=== PATIENT | female | born 1960 | race Caucasian/White ===

== ENCOUNTER 2023-12-01 17:46 | Emergency (ER) | payer OTHER, MEDICAID, SELFPAY ==
[2023-12-01] VITALS (9 sets, daily range): BP systolic 113–176; BP diastolic 77–110; PULSE 60–118; RESP 16–29; TEMP 37.2; O2SAT 91–95; BMI 37.4
--- NOTE | 2023-12-01 18:14 | DI.RAD.S_ITS ---
PROCEDURE: XR CHEST 1V INDICATIONS: Shortness of breath TECHNIQUE: One view of the chest was acquired. COMPARISON: None. FINDINGS: Surgical changes and devices: None. Lungs and pleura: Low lung volumes. Diffuse interstitial thickening. Indistinct central vessels. Possible trace bilateral pleural effusions. Mediastinum: Mediastinal contours appear normal. Heart size is normal. Bones and chest wall: No suspicious bony lesions. Overlying soft tissues appear unremarkable. IMPRESSION: Diffuse interstitial thickening may indicate viral pneumonitis or pulmonary edema. Findings are extension weighted by low lung volumes. Dictated by: Valeria Ann M.D. on 12/01/2023 at 19:23 Approved by: Valeria Ann M.D. on 12/01/2023 at 19:24
[2023-12-01 18:33] LABS: Add Manual Diff / Slide Review NO; Basophils Absolute Auto 100 /uL (0-100); Basophils Percent Auto 1.4 % (0-2); Eosinophils Absolute Auto 300 /uL (0-450); Eosinophils Percent Auto 3.5 % (2-4); Hematocrit 47.8 % (36-46); Hemoglobin 15.9 g/dL (12.0-16.0); Lymphocytes Absolute Auto 2400 /uL (1100-4500); Lymphocytes Percent Auto 24.5 % (25-40); Mean Corpuscular HGB Conc 33.3 % (30-36); Mean Corpuscular Hemoglobin 29.5 PG (26-34); Mean Corpuscular Volume 88.5 fL (80-100); Monocytes Absolute Auto 600 /uL (0-900); Monocytes Percent Auto 5.9 % (3-14); Neutrophils Absolute Auto 6300 /uL (1500-7000); Neutrophils Percent Auto 64.7 % (50-75); Platelet Count 226 X10^3/uL (150-400); Prothrombin Time 11.2 SECONDS (9.4-12.5); Red Blood Cell Count 5.41 X10^6/uL (4.0-5.2); White Blood Cell Count 9.8 X10^3/uL (4.5-11.0)
[2023-12-01 18:36] LABS: Lactate (Lactic Acid) 1.2 mmol/L (0.7-2.1)
[2023-12-01 18:37] LABS: Alanine Aminotransferase 32 IU/L (<35); Albumin 3.7 g/dL (3.5-5.0); Albumin Globulin Ratio 1.1 (1.0-2.8); Alkaline Phosphatase 98 U/L (38-126); Aspartate Aminotransferase 25 IU/L (14-36); BUN Creatinine Ratio 17.6 (6-22); Bilirubin Total 0.9 mg/dL (0.2-1.3); Blood Urea Nitrogen 13 mg/dL (7-17); Calcium 9.1 mg/dL (8.4-10.2); Carbon Dioxide 32 mmol/L (22-32); Chloride 101 mmol/L (98-107); Estimated Glomerular Filt Rate > 60 mL/min (>60); Globulin 3.3 g/dL (1.7-4.1); Glucose 171 mg/dL (80-110); HEMOLYSIS < 15 (0-50); Potassium 4.2 mmol/L (3.4-5.1); Sodium 135 mmol/L (137-145)
--- NOTE | 2023-12-01 18:45 | ED_ITS ---
HPI - SOB/Dyspnea General Chief Complaint: Shortness of Breath/Dyspnea Stated Complaint: Sob, Abn EKG, Leg Swelling, unable to lie flat Time Seen by Provider: 12/01/23 18:40 History of Present Illness HPI Narrative: Gradually increasing shortness of breath and lower extremity edema over the past 3 or 4 days. No fever, she does have significant cough. She reports very significant weight gain. No known history of coronary disease or congestive heart failure or diabetes or pulmonary disease. She does smoke cigarettes and she does have hypertension. She has a little bit of chest heaviness from time to time and she reports abdominal pain mainly in the left side but a little bit in the right upper as well. She also is quite constipated recently. She went to urgent care and they told her to come over here to the emergency department. Related Data Previous Rx's Medication Instructions Recorded doxycycline hyclate 100 mg capsule 100 mg PO Q12H #20 caps 03/10/17 hydrocodone 5 mg-acetaminophen 325 0 tab PO Q6HP PRN #15 tabs 03/10/17 mg tablet furosemide 40 mg tablet 40 mg PO BID #14 tabs 12/01/23 Allergies Allergy/AdvReac Type Severity Reaction Status Date / Time No Known Allergies Allergy Uncoded 12/14/17 11:52 Patient History Social History Smoking Status: Current every day smoker Smoking Status: Current every day smoker Substance Use Type: marijuana Exam Narrative Exam Narrative: GENERAL: Alert, cooperative and in no distress. HEAD: Atraumatic. Normocephalic. EYES: Sclera are clear without icterus. Extraocular movements are full. ENT: No rhinorrhea. NECK: Supple. Full range of motion. CARDIOVASCULAR: Normal rate and rhythm without murmur gallop or rub, significant peripheral edema symmetric bilaterally RESPIRATORY: Clear to auscultation. Breath sounds equal bilaterally. No wheezes, rales, or rhonchi. GASTROINTESTINAL: Abdomen soft, non-tender, nondistended. EXTREMITIES: No edema, full range of motion. No obvious trauma. BACK: Normal inspection NEURO: Nonfocal examination, normal speech, normal gait. SKIN: No rash or erythema of visible areas PSYCH: Normally oriented. Normal range of affect. Appropriate behavior Initial Vital Signs Initial Vital Signs: Vital Signs Pulse Rate 60 12/01/23 18:03 Blood Pressure 163/87 H 12/01/23 18:03 Pulse Oximetry 93 12/01/23 18:03 Course Orders Ordered: ED Orders 12/01/23 18:14 XR chest 1V Stat EKG-12 Lead Stat Measure peak expiratory flow ONCE RT Consult Eval and Treat NOW 12/01/23 18:15 Complete Blood Count AUTO DIFF Stat Comprehensive Metabolic Panel Stat Lactate (Lactic Acid) Stat NT-proBNP (BNP-Adult 18+) Stat Prothrombin Time INR Stat Troponin I Stat 12/01/23 18:48 CBC Auto Diff [Complete Blood Count AUTO DIFF] Stat CMP [Comprehensive Metabolic Panel] Stat D Dimer Stat Magnesium Stat Prothrombin Time INR Stat TSH [Thyroid Stimulating Hormone] Stat 12/01/23 18:49 EKG-12 Lead Stat Furosemide (Furosemide 40 Mg Tablet) 40 mg PO NOW ONE Stop: 12/01/23 21:05 Discontinued Medications Aspirin (Aspirin Ec 325 Mg Tablet) 325 mg PO NOW ONE Stop: 12/01/23 18:48 Last Admin: 12/01/23 19:39 Dose: 325 mg Documented By: YANELY Vital Signs Vital signs: Vital Signs - 8 hr 12/01/23 18:03 12/01/23 18:03 12/01/23 18:10 Temperature 98.9 F Pulse Rate 60 116 H Respiratory Rate 24 Blood Pressure 163/87 H 163/87 H Pulse Oximetry 93 94 Oxygen Delivery Method Room Air 12/01/23 18:24 12/01/23 18:30 12/01/23 18:36 Temperature Pulse Rate 113 H 106 H Respiratory Rate 18 22 24 Blood Pressure 163/87 H Pulse Oximetry 95 91 91 Oxygen Delivery Method Room Air 12/01/23 18:36 12/01/23 19:00 12/01/23 19:00 Temperature Pulse Rate 102 H Respiratory Rate 25 H Blood Pressure 157/110 H 176/103 H Pulse Oximetry 93 Oxygen Delivery Method 12/01/23 19:30 12/01/23 19:31 12/01/23 19:31 Temperature Pulse Rate 112 H 118 H Respiratory Rate 24 29 H Blood Pressure 169/77 H Pulse Oximetry 91 93 Oxygen Delivery Method MDM - SOB/Dyspnea Lab Data 12/01/23 18:15 12/01/23 18:15 Labs: Lab Results 12/01/23 Range/Units 18:15 WBC 9.8 (4.5-11.0) X10^3/uL RBC 5.41 H (4.0-5.2) X10^6/uL Hgb 15.9 (12.0-16.0) g/dL Hct 47.8 H (36-46) % MCV 88.5 (80-100) fL MCH 29.5 (26-34) PG MCHC 33.3 (30-36) % RDW 14.0 (11.6-14.8) % Plt Count 226 (150-400) X10^3/uL Neut % (Auto) 64.7 (50-75) % Lymph % (Auto) 24.5 L (25-40) % [place] % (Auto) 5.9 (3-14) % Eos % (Auto) 3.5 (2-4) % Baso % (Auto) 1.4 (0-2) % Neut # (Auto) 6300 (9509-1333) /uL Lymph # (Auto) 2400 (9681-9957) /uL [place] # (Auto) 600 (0-900) /uL Eos # (Auto) 300 (0-450) /uL Baso # (Auto) 100 (0-100) /uL PT 11.2 (9.4-12.5) SECONDS INR 1.0 (0.9-1.3) Sodium 135 L (137-145) mmol/L Potassium 4.2 (3.4-5.1) mmol/L Chloride 101 (98-107) mmol/L Carbon Dioxide 32 (22-32) mmol/L BUN 13 (7-17) mg/dL Creatinine 0.74 (0.52-1.04) mg/dL Estimated GFR > 60 (>60) mL/min BUN/Creatinine Ratio 17.6 (6-22) Glucose 171 H (80-110) mg/dL Lactate 1.2 (0.7-2.1) mmol/L Calcium 9.1 (8.4-10.2) mg/dL Total Bilirubin 0.9 (0.2-1.3) mg/dL AST 25 (14-36) IU/L ALT 32 (<35) IU/L Alkaline Phosphatase 98 (38-126) U/L Troponin I < 0.012 (0.01-0.034) ng/mL NT-Pro-B Natriuret Pep 1320 H (<125) pg/mL Total Protein 7.0 (6.3-8.2) g/dL Albumin 3.7 (3.5-5.0) g/dL Globulin 3.3 (1.7-4.1) g/dL Albumin/Globulin Ratio 1.1 (1.0-2.8) ECG Data Interpretation: ECG obtained at 6:08 p.m. shows sinus tachycardia at 111 beats per minute. Frequent PVCs. No acute ST or T-wave change. MDM Narrative Medical decision making narrative: Patient would like to go home. I told her that she has new congestive heart failure and fluid overload and requires diuretics. I recommend strongly that she stay in the hospital but she declines this at this time saying that she has too many arrangements to take care of at home to consider inpatient care. I told her that she needs to take the diuretic twice daily and follow-up within the next few days and return if she has any worsening symptoms which she agrees to do. Discharge Plan Departure Patient Disposition: Home Clinical Impression: Congestive heart failure Instructions: DI for Heart Failure Activity Restrictions/Additional Instructions: I think the majority of your symptoms are from excessive fluid in your system. This is most likely related to congestive heart failure. I recommend furosemide 40 mg twice daily for the next week. You need to follow-up within the next 3 or 4 days at the clinic for re-evaluation to make sure that your body is tolerating this treatment okay. Prescriptions: New furosemide 40 mg tablet 40 mg PO BID Qty: 14 0RF No Action doxycycline hyclate 100 MG capsule 100 mg PO Q12H Qty: 20 0RF hydrocodone-acetaminophen 5 MG/325 MG tablet 0 tab PO Q6HP PRNQty: 15 0RF Referrals: Miscellaneous,Doctor, [Primary Care Provider] - Stand Alone Forms: Patient Portal/API
[2023-12-01 18:50] LABS: NT-proBNP (BNP-Adult 18+) 1320 pg/mL (<125); Troponin I < 0.012 ng/mL (0.01-0.034)
[2023-12-01] MEDS: ASPIRIN EC 325 MG TABLET PO (19:39)
[2023-12-01] MEDS: FUROSEMIDE 40 MG TABLET PO (21:09)
== END 2023-12-01 21:21 | disposition home or self-care (01) ==
PROVIDERS: Emergency Provider Family Medicine Addiction Medicine
DX: I50.9 Heart failure, unspecified (principal); R06.02 Shortness of breath; R60.9 Edema, unspecified
CPT/HCPCS: 36415; 71045; 80053; 83605; 83880; 84484; 85025; 85610; 93005; 99284

== ENCOUNTER 2023-12-09 22:08 | Observation (INO) | payer OTHER, MEDICAID, SELFPAY ==
[2023-12-09] VITALS (12 sets, daily range): BP systolic 86–108; BP diastolic 52–59; PULSE 58–87; RESP 18–31; TEMP 36.5; O2SAT 89–95; BMI 33.9
--- NOTE | 2023-12-09 22:39 | ED_ITS ---
HPI - General Adult General Chief complaint: Shortness of Breath/Dyspnea Stated complaint: rxn to meds/N/V/close to syncope Time Seen by Provider: 12/09/23 22:26 Source: patient Mode of arrival: Ambulatory History of Present Illness HPI narrative: 62-year-old female presents by private vehicle for nausea and possible medication side effect. Patient was seen on 11/30 for shortness of breath and lower extremity edema. She was diagnosed with congestive heart failure and discharged on Lasix, which she states she finished today. Patient states that she was seen in the walk-in clinic earlier and with several different medications were prescribed. This afternoon she picked the medications up from [facility] and took her 1st doses. She then began to feel symptomatic and came to the ER. Patient noted to be hypotensive with slightly low oxygen on arrival. Related Data Previous Rx's Medication Instructions Recorded doxycycline hyclate 100 mg capsule 100 mg PO Q12H #20 caps 03/10/17 hydrocodone 5 mg-acetaminophen 325 0 tab PO Q6HP PRN #15 tabs 03/10/17 mg tablet furosemide 40 mg tablet 40 mg PO BID #14 tabs 12/01/23 Allergies Allergy/AdvReac Type Severity Reaction Status Date / Time No Known Allergies Allergy Uncoded 12/14/17 11:52 Review of Systems Review of Systems Narrative: See HPI Patient History Social History Smoking Status: Current every day smoker Smoking Status: Current every day smoker Substance Use Type: marijuana Exam Initial Vital Signs Initial Vital Signs: Vital Signs Temperature 97.7 F 12/09/23 22:12 Pulse Rate 58 L 12/09/23 22:12 Respiratory Rate 20 12/09/23 22:12 Blood Pressure 95/54 L 12/09/23 22:12 Pulse Oximetry 95 12/09/23 22:12 Oxygen Delivery Method Room Air 12/09/23 22:12 Course Orders Ordered: ED Orders 12/09/23 22:41 Chest [XR chest 1V] Stat EKG-12 Lead Stat 12/09/23 23:06 BNP [NT-proBNP (BNP-Adult 18+)] Stat CBC Auto Diff [Complete Blood Count AUTO DIFF] Stat CMP [Comprehensive Metabolic Panel] Stat Lactate (Lactic Acid) Stat PT [Prothrombin Time INR] Stat Troponin & CK Cardiac Panel Stat 12/10/23 00:45 BMP [Basic Metabolic Panel] Stat 12/10/23 01:50 UA Complete [Urinalysis and Microscopic] Stat Urine Drug Screen, Rapid Stat 12/10/23 04:50 BMP [Basic Metabolic Panel] Stat 12/10/23 05:58 BMP [Basic Metabolic Panel] Stat Discontinued Medications Albuterol/Ipratropium (Albuterol/Ipratropium 3 Ml Ampul) 6 ml INH NOW ONE Stop: 12/10/23 01:19 Last Admin: 12/10/23 01:37 Dose: 6 ml Documented By: TOMEKA Sodium Chloride (Normal Saline 0.9%) 1,000 mls @ 1,000 mls/hr IV BOLUS ONE Stop: 12/09/23 23:38 Last Infusion: 12/10/23 00:05 Dose: Infused Documented By: Admin: 12/09/23 23:01 Dose: 1,000 mls/hr Documented By: JERRICA Sodium Chloride (Normal Saline 0.9%) 1,000 mls @ 1,000 mls/hr IV BOLUS ONE Stop: 12/10/23 03:43 Last Infusion: 12/10/23 03:55 Dose: Infused Documented By: Admin: 12/10/23 02:55 Dose: 1,000 mls/hr Documented By: JERRICA Potassium Chloride (Potassium Chloride 20 Meq Tab) 40 meq PO NOW ONE Stop: 12/10/23 01:19 Last Admin: 12/10/23 01:32 Dose: 40 meq Documented By: JERRICA Potassium Chloride (Potassium Chloride 20 Meq Tab) 40 meq PO NOW ONE Stop: 12/10/23 02:46 Last Admin: 12/10/23 02:55 Dose: 40 meq Documented By: JERRICA Vital Signs Vital signs: Vital Signs - 8 hr 12/09/23 22:12 12/09/23 22:31 12/09/23 22:40 Temperature 97.7 F Pulse Rate 58 L 87 Respiratory Rate 20 25 H Blood Pressure 95/54 L 108/57 L Pulse Oximetry 95 Oxygen Delivery Method Room Air Oxygen Flow Rate 12/09/23 22:40 12/09/23 23:00 12/09/23 23:01 Temperature Pulse Rate 83 85 76 Respiratory Rate 18 31 H 27 H Blood Pressure Pulse Oximetry 90 L 90 L 90 L Oxygen Delivery Method Oxygen Flow Rate 12/09/23 23:01 12/09/23 23:04 12/09/23 23:04 Temperature Pulse Rate 78 Respiratory Rate 24 Blood Pressure 86/54 L 101/55 L Pulse Oximetry 89 L Oxygen Delivery Method Room Air Oxygen Flow Rate 12/09/23 23:07 12/09/23 23:07 12/09/23 23:10 Temperature Pulse Rate 79 Respiratory Rate 24 Blood Pressure 102/52 L 104/59 L Pulse Oximetry 94 Oxygen Delivery Method Oxygen Flow Rate 12/09/23 23:10 12/09/23 23:20 12/09/23 23:20 Temperature Pulse Rate 84 84 Respiratory Rate 24 23 Blood Pressure 99/57 L Pulse Oximetry 94 94 Oxygen Delivery Method Oxygen Flow Rate 12/09/23 23:30 12/09/23 23:30 12/09/23 23:43 Temperature Pulse Rate 74 77 Respiratory Rate 20 24 Blood Pressure 102/57 L Pulse Oximetry 94 95 Oxygen Delivery Method Oxygen Flow Rate 12/09/23 23:43 12/09/23 23:50 12/09/23 23:50 Temperature Pulse Rate 83 Respiratory Rate 22 Blood Pressure 98/54 L 99/54 L Pulse Oximetry 95 Oxygen Delivery Method Oxygen Flow Rate 12/10/23 00:00 12/10/23 00:00 12/10/23 00:10 Temperature Pulse Rate 78 Respiratory Rate 25 H Blood Pressure 115/55 L 109/55 L Pulse Oximetry 98 Oxygen Delivery Method Nasal Cannula Oxygen Flow Rate 2 12/10/23 00:10 12/10/23 00:20 12/10/23 00:20 Temperature Pulse Rate 80 76 Respiratory Rate 18 18 Blood Pressure 121/60 Pulse Oximetry 96 97 Oxygen Delivery Method Oxygen Flow Rate 12/10/23 00:30 12/10/23 00:30 12/10/23 00:40 Temperature Pulse Rate 79 Respiratory Rate 26 H Blood Pressure 108/54 L 94/50 L Pulse Oximetry 98 Oxygen Delivery Method Oxygen Flow Rate 12/10/23 00:40 12/10/23 00:51 12/10/23 00:51 Temperature Pulse Rate 77 82 Respiratory Rate 19 24 Blood Pressure 108/60 Pulse Oximetry 97 96 Oxygen Delivery Method Oxygen Flow Rate 12/10/23 01:00 12/10/23 01:00 12/10/23 01:11 Temperature Pulse Rate 84 Respiratory Rate 22 Blood Pressure 88/54 L 108/70 Pulse Oximetry 95 Oxygen Delivery Method Oxygen Flow Rate 12/10/23 01:11 12/10/23 01:20 12/10/23 01:20 Temperature Pulse Rate 89 87 Respiratory Rate 26 H 20 Blood Pressure 116/56 L Pulse Oximetry 96 97 Oxygen Delivery Method Oxygen Flow Rate 12/10/23 01:30 12/10/23 01:30 12/10/23 01:37 Temperature Pulse Rate 113 H 104 H Respiratory Rate 23 20 Blood Pressure 105/60 Pulse Oximetry 98 100 Oxygen Delivery Method Nasal Cannula Oxygen Flow Rate 2.5 12/10/23 01:40 12/10/23 01:40 12/10/23 01:51 Temperature Pulse Rate 75 Respiratory Rate 18 Blood Pressure 99/57 L 134/61 Pulse Oximetry 99 Oxygen Delivery Method Oxygen Flow Rate 12/10/23 01:51 12/10/23 02:00 12/10/23 02:00 Temperature Pulse Rate 89 Respiratory Rate 19 Blood Pressure 120/58 L Pulse Oximetry 94 99 Oxygen Delivery Method Oxygen Flow Rate 12/10/23 02:10 12/10/23 02:10 12/10/23 02:20 Temperature Pulse Rate 99 H Respiratory Rate 23 Blood Pressure 123/59 L 116/58 L Pulse Oximetry 98 Oxygen Delivery Method Oxygen Flow Rate 12/10/23 02:20 12/10/23 02:30 12/10/23 02:30 Temperature Pulse Rate 99 H 87 Respiratory Rate 18 21 Blood Pressure 119/58 L Pulse Oximetry 99 99 Oxygen Delivery Method Oxygen Flow Rate 12/10/23 02:40 12/10/23 02:40 12/10/23 02:50 Temperature Pulse Rate 80 95 H Respiratory Rate 16 18 Blood Pressure 124/59 L Pulse Oximetry 100 Oxygen Delivery Method Oxygen Flow Rate 12/10/23 02:50 12/10/23 03:00 12/10/23 03:01 Temperature Pulse Rate 107 H Respiratory Rate 19 Blood Pressure 151/75 H 102/58 L Pulse Oximetry 97 Oxygen Delivery Method Oxygen Flow Rate 12/10/23 03:01 12/10/23 03:10 12/10/23 03:10 Temperature Pulse Rate 104 H 95 H Respiratory Rate 19 20 Blood Pressure 107/55 L Pulse Oximetry 95 94 Oxygen Delivery Method Oxygen Flow Rate 12/10/23 03:20 12/10/23 03:20 12/10/23 03:30 Temperature Pulse Rate 88 105 H Respiratory Rate 19 19 Blood Pressure 114/57 L Pulse Oximetry 96 95 Oxygen Delivery Method Oxygen Flow Rate 12/10/23 03:30 12/10/23 03:40 12/10/23 03:40 Temperature Pulse Rate 110 H Respiratory Rate 20 Blood Pressure 110/53 L 103/64 Pulse Oximetry 96 Oxygen Delivery Method Oxygen Flow Rate 12/10/23 03:50 12/10/23 03:50 12/10/23 04:00 Temperature Pulse Rate 103 H Respiratory Rate 17 Blood Pressure 105/56 L 109/58 L Pulse Oximetry 98 Oxygen Delivery Method Oxygen Flow Rate 12/10/23 04:00 12/10/23 04:10 12/10/23 04:10 Temperature Pulse Rate 110 H 111 H Respiratory Rate 15 14 Blood Pressure 112/57 L Pulse Oximetry 100 100 Oxygen Delivery Method Oxygen Flow Rate 12/10/23 04:20 12/10/23 04:20 12/10/23 04:30 Temperature Pulse Rate 100 H Respiratory Rate 14 Blood Pressure 99/52 L 109/80 Pulse Oximetry 100 Oxygen Delivery Method Oxygen Flow Rate 12/10/23 04:30 12/10/23 04:40 12/10/23 04:40 Temperature Pulse Rate 105 H 90 Respiratory Rate 15 25 H Blood Pressure 119/57 L Pulse Oximetry 99 94 Oxygen Delivery Method Oxygen Flow Rate 12/10/23 04:50 12/10/23 04:50 Temperature Pulse Rate 89 Respiratory Rate 23 Blood Pressure 111/58 L Pulse Oximetry 93 Oxygen Delivery Method Oxygen Flow Rate Medical Decision Making Lab Data 12/09/23 23:06 12/10/23 04:50 Labs: Lab Results 12/09/23 12/10/23 12/10/23 Range/Units 23:06 00:45 01:10 WBC 12.5 H (4.5-11.0) X10^3/uL RBC 5.90 H (4.0-5.2) X10^6/uL Hgb 17.3 H (12.0-16.0) g/dL Hct 51.0 H (36-46) % MCV 86.5 (80-100) fL MCH 29.4 (26-34) PG MCHC 34.0 (30-36) % RDW 13.5 (11.6-14.8) % Plt Count 242 (150-400) X10^3/uL Neut % (Auto) 72.6 (50-75) % Lymph % (Auto) 17.3 L (25-40) % [place] % (Auto) 8.7 (3-14) % Eos % (Auto) 0.7 L (2-4) % Baso % (Auto) 0.7 (0-2) % Neut # (Auto) 9100 H (0100-2449) /uL Lymph # (Auto) 2200 (5237-5303) /uL [place] # (Auto) 1100 H (0-900) /uL Eos # (Auto) 100 (0-450) /uL Baso # (Auto) 100 (0-100) /uL PT 10.8 (9.4-12.5) SECONDS INR 0.9 (0.9-1.3) Sodium 129 L 131 L (137-145) mmol/L Potassium 2.8 L D 2.5 L* (3.4-5.1) mmol/L Chloride 83 L 86 L (98-107) mmol/L Carbon Dioxide 39 H > 40 H* (22-32) mmol/L BUN 46 H 44 H (7-17) mg/dL Creatinine 2.07 H 2.03 H (0.52-1.04) mg/dL Estimated GFR 27 L 27 L (>60) mL/min BUN/Creatinine Ratio 22.2 H 21.7 (6-22) Glucose 207 H 182 H (80-110) mg/dL Lactate 2.4 H 1.2 (0.7-2.1) mmol/L Calcium 8.9 8.2 L (8.4-10.2) mg/dL Total Bilirubin 1.1 (0.2-1.3) mg/dL AST 36 (14-36) IU/L ALT 22 (<35) IU/L Alkaline Phosphatase 94 (38-126) U/L Total Creatine Kinase 51 (30-135) U/L Troponin I < 0.012 (0.01-0.034) ng/mL NT-Pro-B Natriuret Pep 504 H (<125) pg/mL Total Protein 7.3 (6.3-8.2) g/dL Albumin 3.8 (3.5-5.0) g/dL Globulin 3.5 (1.7-4.1) g/dL Albumin/Globulin Ratio 1.1 (1.0-2.8) Urine Color Urine Appearance Urine pH (4.5-8.0) Ur Specific [place] (1.000-1.035) Urine Protein (Negative) Urine Glucose (UA) (Negative) g/dL Urine Ketones (NEGATIVE) Urine Occult Blood (Negative) Urine Nitrate (Negative) Urine Bilirubin (NEGATIVE) Urine Urobilinogen (0.2) E.U./dL Ur Leukocyte Esterase (NEGATIVE) Urine RBC (0-5/HPF) Urine WBC (0-5/HPF) Ur Squamous Epith Cells (0-5/HPF) Urine Bacteria (None) Ur Culture Indicated? Vol Urine Centrifuged U Opiates 300ng/mL cut (Negative) Ur Oxycodone Screen (Negative) Urine Methadone Screen (Negative) Ur Barbiturates Screen (Negative) U Tricyclic Antidepress (Negative) Ur Phencyclidine Scrn (Negative) Ur Amphetamines Screen (Negative) U Methamphetamines Scrn (Negative) Ur MDMA Scrn (Ecstasy) (Negative) U Benzodiazepines Scrn (Negative) Urine Cocaine Screen (Negative) U Marijuana (THC) Screen (Negative) Urine Specific [place] Ur Creatinine 12/10/23 12/10/23 12/10/23 Range/Units 01:50 01:50 04:50 WBC (4.5-11.0) X10^3/uL RBC (4.0-5.2) X10^6/uL Hgb (12.0-16.0) g/dL Hct (36-46) % MCV (80-100) fL MCH (26-34) PG MCHC (30-36) % RDW (11.6-14.8) % Plt Count (150-400) X10^3/uL Neut % (Auto) (50-75) % Lymph % (Auto) (25-40) % [place] % (Auto) (3-14) % Eos % (Auto) (2-4) % Baso % (Auto) (0-2) % Neut # (Auto) (6930-7777) /uL Lymph # (Auto) (3327-6563) /uL [place] # (Auto) (0-900) /uL Eos # (Auto) (0-450) /uL Baso # (Auto) (0-100) /uL PT (9.4-12.5) SECONDS INR (0.9-1.3) Sodium 131 L (137-145) mmol/L Potassium 3.0 L (3.4-5.1) mmol/L Chloride 91 L (98-107) mmol/L Carbon Dioxide 37 H (22-32) mmol/L BUN 41 H (7-17) mg/dL Creatinine 1.80 H (0.52-1.04) mg/dL Estimated GFR 31 L (>60) mL/min BUN/Creatinine Ratio 22.8 H (6-22) Glucose 152 H (80-110) mg/dL Lactate (0.7-2.1) mmol/L Calcium 7.7 L (8.4-10.2) mg/dL Total Bilirubin (0.2-1.3) mg/dL AST (14-36) IU/L ALT (<35) IU/L Alkaline Phosphatase (38-126) U/L Total Creatine Kinase (30-135) U/L Troponin I (0.01-0.034) ng/mL NT-Pro-B Natriuret Pep (<125) pg/mL Total Protein (6.3-8.2) g/dL Albumin (3.5-5.0) g/dL Globulin (1.7-4.1) g/dL Albumin/Globulin Ratio (1.0-2.8) Urine Color Yellow Urine Appearance Clear Urine pH 5.0 TNP (4.5-8.0) Ur Specific [place] 1.025 (1.000-1.035) Urine Protein Negative (Negative) Urine Glucose (UA) Negative (Negative) g/dL Urine Ketones Negative (NEGATIVE) Urine Occult Blood Negative (Negative) Urine Nitrate Negative (Negative) Urine Bilirubin Negative (NEGATIVE) Urine Urobilinogen 0.2 (0.2) E.U./dL Ur Leukocyte Esterase Negative (NEGATIVE) Urine RBC None seen (0-5/HPF) Urine WBC None seen (0-5/HPF) Ur Squamous Epith Cells >30 /hpf H (0-5/HPF) Urine Bacteria Occasional (0-1) (None) Ur Culture Indicated? Cult not indicated Vol Urine Centrifuged 10ml (spun) U Opiates 300ng/mL cut Negative (Negative) Ur Oxycodone Screen Negative (Negative) Urine Methadone Screen Negative (Negative) Ur Barbiturates Screen Negative (Negative) U Tricyclic Antidepress Negative (Negative) Ur Phencyclidine Scrn Negative (Negative) Ur Amphetamines Screen Positive H (Negative) U Methamphetamines Scrn Positive H (Negative) Ur MDMA Scrn (Ecstasy) Negative (Negative) U Benzodiazepines Scrn Negative (Negative) Urine Cocaine Screen Negative (Negative) U Marijuana (THC) Screen Negative (Negative) Urine Specific [place] TNP Ur Creatinine TNP Imaging Data Chest x-ray: Radiologist's Impression: PROCEDURE: XR CHEST 1V INDICATIONS: HYPOTENTION/GEN WEAKNESS TECHNIQUE: One view of the chest was acquired. COMPARISON: [facility], CR, XR CHEST 1V, 12/01/2023, 18:16. FINDINGS: Surgical changes and devices: None. Lungs and pleura: Mild interstitial prominence can be seen, which is improved compared to the prior. No pleural effusions or pneumothorax. Mediastinum: Mediastinal contours appear normal. Heart size is normal. Bones and chest wall: No suspicious bony lesions. Age-appropriate bony degenerative changes are seen. Overlying soft tissues appear unremarkable. IMPRESSION: Improved interstitial prominence compared to the prior. Dictated by: Osmar Ruano M.D. on 12/09/2023 at 22:15 Approved by: Osmar Ruano M.D. on 12/09/2023 at 22:15 MDM Narrative Medical decision making narrative: Possible medication side effect, patient reports nausea and feeling overall very poorly after taking the cardiac medications prescribed with the walk-in clinic today. Patient slightly hypotensive on arrival with low oxygen saturations. She was taken to ER bed and placed on supplemental nasal cannula. Laboratory work significant for leukocytosis with WBC count 12.5, hemoglobin 17.3 (increased from 15.9), platelets 242. Chemistry is markedly abnormal from 11/30. Patient now has hyponatremia, hypokalemia, elevated creatinine. Sodium 129, potassium 2.8, creatinine 2.07 (previous 135/4.2/0.74). BP improved after IV fluids. CXR shows improvement in previous infiltrates. Suspect patient over- diuresed and is volume depleted. Repeat labs after 1L IVF shows minimal change. CO2 even higher. Suspect that patient has COPD, she is a longstanding tobacco user. Lungs are clear to auscultation bilaterally but I suspect that patient would benefit from nebulizer treatments and DuoNebs ordered. Plan to order additional L of IV fluids as well as p.o. potassium, if it does not improve then plan to consult Nephrology. Second repeat BMP after additional IV fluids does show improvement. Sodium now 131, potassium 3.0, creatinine 1.8. Patient is resting comfortably in bed, hemodynamically stable, no acute distress. Patient was not hydrated enough to be good candidate for discharge, plan to admit for observation further assessment. Discharge Plan Departure Patient Disposition: Admitted as Observation Clinical Impression: NERI (acute kidney injury), Acute hypokalemia, Amphetamine abuse, Nausea Prescriptions: No Action doxycycline hyclate 100 MG capsule 100 mg PO Q12H Qty: 20 0RF hydrocodone-acetaminophen 5 MG/325 MG tablet 0 tab PO Q6HP PRNQty: 15 0RF furosemide 40 mg tablet 40 mg PO BID Qty: 14 0RF Referrals: Miscellaneous,Doctor, [Primary Care Provider] - Admit Date/Time: 12/10/23 05:49 Admit Provider: Hernesto Solano
[2023-12-09] MEDS: SODIUM CHLORIDE 0.9% 1,000 ML 1000 ML IV (23:01)
[2023-12-09 23:19] LABS: Add Manual Diff / Slide Review NO; Basophils Absolute Auto 100 /uL (0-100); Basophils Percent Auto 0.7 % (0-2); Eosinophils Absolute Auto 100 /uL (0-450); Eosinophils Percent Auto 0.7 % (2-4); Hemoglobin 17.3 g/dL (12.0-16.0); Lymphocytes Absolute Auto 2200 /uL (1100-4500); Lymphocytes Percent Auto 17.3 % (25-40); Mean Corpuscular Hemoglobin 29.4 PG (26-34); Mean Corpuscular Volume 86.5 fL (80-100); Monocytes Absolute Auto 1100 /uL (0-900); Monocytes Percent Auto 8.7 % (3-14); Neutrophils Absolute Auto 9100 /uL (1500-7000); Neutrophils Percent Auto 72.6 % (50-75); Platelet Count 242 X10^3/uL (150-400); Red Cell Distribution Width 13.5 % (11.6-14.8); White Blood Cell Count 12.5 X10^3/uL (4.5-11.0)
[2023-12-09 23:25] LABS: INR 0.9 (0.9-1.3); Prothrombin Time 10.8 SECONDS (9.4-12.5)
--- NOTE | 2023-12-09 23:34 | PC.NURSE ---
Pt poor historian, complaining of intermittent N/V, states I feel like I have squares behind my ears Lung sounds clear bilaterally, abdominal breathing.O2 sats 88%, RN placed pt on 2L NC. Upon assessment pt complains of 4/10 left chest pain that lasted about 1 minute. Pt says pain is now subsided. States she went to a clinic today and they told her to stop her hydrochlorothiazide and begin lasix. metoprolol, and losartan. Pt states she started the new meds and then she began not feeling well.
[2023-12-09 23:42] LABS: Creatine Kinase 51 U/L (30-135); Lactate (Lactic Acid) 2.4 mmol/L (0.7-2.1)
[2023-12-09 23:43] LABS: Alanine Aminotransferase 22 IU/L (<35); Albumin 3.8 g/dL (3.5-5.0); Albumin Globulin Ratio 1.1 (1.0-2.8); Alkaline Phosphatase 94 U/L (38-126); Aspartate Aminotransferase 36 IU/L (14-36); BUN Creatinine Ratio 22.2 (6-22); Bilirubin Total 1.1 mg/dL (0.2-1.3); Blood Urea Nitrogen 46 mg/dL (7-17); Calcium 8.9 mg/dL (8.4-10.2); Carbon Dioxide 39 mmol/L (22-32); Chloride 83 mmol/L (98-107); Estimated Glomerular Filt Rate 27 mL/min (>60); Globulin 3.5 g/dL (1.7-4.1); Glucose 207 mg/dL (80-110); Potassium 2.8 mmol/L (3.4-5.1); Sodium 129 mmol/L (137-145); Total Protein 7.3 g/dL (6.3-8.2)
[2023-12-09 23:44] LABS: HEMOLYSIS 60 (0-50)
[2023-12-09 23:52] LABS: NT-proBNP (BNP-Adult 18+) 504 pg/mL (<125)
[2023-12-09 23:54] LABS: Troponin I < 0.012 ng/mL (0.01-0.034)
[2023-12-10] VITALS (38 sets, daily range): BP systolic 88–151; BP diastolic 47–80; PULSE 57–113; RESP 14–26; TEMP 36.1–36.7; O2SAT 92–100; BMI 33.9
[2023-12-10 00:46] LABS: Reflexed Lactate in 2 Hours Y
[2023-12-10 01:06] LABS: BUN Creatinine Ratio 21.7 (6-22); Blood Urea Nitrogen 44 mg/dL (7-17); Calcium 8.2 mg/dL (8.4-10.2); Chloride 86 mmol/L (98-107); Estimated Glomerular Filt Rate 27 mL/min (>60); Glucose 182 mg/dL (80-110); HEMOLYSIS < 15 (0-50); Sodium 131 mmol/L (137-145)
[2023-12-10 01:08] LABS: Carbon Dioxide > 40 mmol/L (22-32); Potassium 2.5 mmol/L (3.4-5.1)
[2023-12-10] MEDS: POTASSIUM CHLORIDE 20 MEQ TAB 40 MEQ PO ×3 (01:32→17:09)
[2023-12-10] MEDS: ALBUTEROL/IPRATROPIUM 3 ML AMPUL 6 ML INH (01:37)
[2023-12-10 01:39] LABS: Lactate 2HR (Lactic Acid Rflx) 1.2 mmol/L (0.7-2.1)
[2023-12-10 02:06] LABS: Appearance Urine UA CLEAR; Bilirubin Urine UA NEGATIVE (NEGATIVE); Color Urine UA YELLOW; Glucose Urine UA NEGATIVE (Negative); Ketones Urine UA NEGATIVE (NEGATIVE); Leukocyte Esterase Urine UA NEGATIVE (NEGATIVE); Nitrite Urine UA NEGATIVE (Negative); Occult Blood Urine UA NEGATIVE (Negative); Protein Urine UA NEGATIVE (Negative); Specific Gravity Urine UA 1.025 (1.000-1.035); Urobilinogen Urine UA 0.2 E.U./dL (0.2)
[2023-12-10 02:12] LABS: UR Morphine/Opiate cutoff 300 Negative (Negative); Urine Amphetamines Positive (Negative); Urine Barbiturates Negative (Negative); Urine Benzodiazepines Negative (Negative); Urine Cocaine Negative (Negative); Urine MDMA Negative (Negative); Urine Methadone Negative (Negative); Urine Methamphetamines Positive (Negative); Urine Oxycodone Negative (Negative); Urine Phencyclidine Negative (Negative); Urine Tetrahydrocannabinol Negative (Negative); Urine Tricyclic Antidepressant Negative (Negative)
[2023-12-10 02:16] LABS: Bacteria Urine Occasional (0-1); Culture Indicated Urine Cult Not Indicated; RBC Urine None Seen (0-5/HPF); Squamous Epithelial Cell Urine >30 /HPF (0-5/HPF); Urine Volume 10mL (spun); WBC Urine None Seen (0-5/HPF)
[2023-12-10] MEDS: SODIUM CHLORIDE 0.9% 1,000 ML 1000 ML IV (02:55)
[2023-12-10 05:12] LABS: BUN Creatinine Ratio 22.8 (6-22); Blood Urea Nitrogen 41 mg/dL (7-17); Calcium 7.7 mg/dL (8.4-10.2); Carbon Dioxide 37 mmol/L (22-32); Chloride 91 mmol/L (98-107); Estimated Glomerular Filt Rate 31 mL/min (>60); Glucose 152 mg/dL (80-110); HEMOLYSIS 21 (0-50); Sodium 131 mmol/L (137-145)
--- NOTE | 2023-12-10 06:13 | P.HP_ITS ---
History of Present Illness History of Present Illness Chief complaint: rxn to meds/N/V/close to syncope Narrative: 62 y/o presented to ED with nausea. PMH of HTN, obesity, smoking, methamphetamine abuse and suspected CHF. Seen in the ED a week ago complaining on significant weight gain and legs swelling. She did not accept hospitalization and was discharged on diuretic, to follow up with PCP. Today she is hypokalemic with NERI. She was given IVFs and KCl in the ED. Cr and K did not correct enough and she is placed in observation for electrolyte and renal function monitoring and correction. [facility] Social History household members: significant other Smoking Status: Current every day smoker alcohol intake: never Meds Home Medications and Allergies Home Medications Medication Instructions Recorded Confirmed Type albuterol sulfate 90 mcg/actuation 2 puff inhalation Q4H PRN 12/10/23 12/10/23 History aerosol inhaler Respiratory Distress codeine 10 mg-guaifenesin 100 mg/5 5 ml PO Q6H PRN cough 12/10/23 12/10/23 History mL oral liquid furosemide 20 mg tablet 20 mg PO QAM 12/10/23 12/10/23 History hydrochlorothiazide 12.5 mg capsule 12.5 mg PO DAILY 12/10/23 12/10/23 History losartan 25 mg tablet 25 mg PO DAILY blood pressure 12/10/23 12/10/23 History metoprolol succinate 25 mg 25 mg PO DAILY 12/10/23 12/10/23 History tablet,extended release 24 hr Allergies Allergy/AdvReac Type Severity Reaction Status Date / Time No Known Drug Allergies Allergy Verified 12/10/23 07:10 Review of Systems Review of Systems Narrative: Unobtainable - patient was not available for an interview Exam Vital Signs (past 8 hours): - 12/09/23 22:31 12/09/23 22:40 12/09/23 22:40 Pulse Rate 87 83 Respiratory Rate 25 H 18 Blood Pressure 108/57 L Pulse Oximetry 90 L Oxygen Delivery Method Oxygen Flow Rate 12/09/23 23:00 12/09/23 23:01 12/09/23 23:01 Pulse Rate 85 76 Respiratory Rate 31 H 27 H Blood Pressure 86/54 L Pulse Oximetry 90 L 90 L Oxygen Delivery Method Oxygen Flow Rate 12/09/23 23:04 12/09/23 23:04 12/09/23 23:07 Pulse Rate 78 Respiratory Rate 24 Blood Pressure 101/55 L 102/52 L Pulse Oximetry 89 L Oxygen Delivery Method Room Air Oxygen Flow Rate 12/09/23 23:07 12/09/23 23:10 12/09/23 23:10 Pulse Rate 79 84 Respiratory Rate 24 24 Blood Pressure 104/59 L Pulse Oximetry 94 94 Oxygen Delivery Method Oxygen Flow Rate 12/09/23 23:20 12/09/23 23:20 12/09/23 23:30 Pulse Rate 84 Respiratory Rate 23 Blood Pressure 99/57 L 102/57 L Pulse Oximetry 94 Oxygen Delivery Method Oxygen Flow Rate 12/09/23 23:30 12/09/23 23:43 12/09/23 23:43 Pulse Rate 74 77 Respiratory Rate 20 24 Blood Pressure 98/54 L Pulse Oximetry 94 95 Oxygen Delivery Method Oxygen Flow Rate 12/09/23 23:50 12/09/23 23:50 12/10/23 00:00 Pulse Rate 83 Respiratory Rate 22 Blood Pressure 99/54 L 115/55 L Pulse Oximetry 95 Oxygen Delivery Method Oxygen Flow Rate 12/10/23 00:00 12/10/23 00:10 12/10/23 00:10 Pulse Rate 78 80 Respiratory Rate 25 H 18 Blood Pressure 109/55 L Pulse Oximetry 98 96 Oxygen Delivery Method Nasal Cannula Oxygen Flow Rate 2 12/10/23 00:20 12/10/23 00:20 12/10/23 00:30 Pulse Rate 76 Respiratory Rate 18 Blood Pressure 121/60 108/54 L Pulse Oximetry 97 Oxygen Delivery Method Oxygen Flow Rate 12/10/23 00:30 12/10/23 00:40 12/10/23 00:40 Pulse Rate 79 77 Respiratory Rate 26 H 19 Blood Pressure 94/50 L Pulse Oximetry 98 97 Oxygen Delivery Method Oxygen Flow Rate 12/10/23 00:51 12/10/23 00:51 12/10/23 01:00 Pulse Rate 82 84 Respiratory Rate 24 22 Blood Pressure 108/60 Pulse Oximetry 96 95 Oxygen Delivery Method Oxygen Flow Rate 12/10/23 01:00 12/10/23 01:11 12/10/23 01:11 Pulse Rate 89 Respiratory Rate 26 H Blood Pressure 88/54 L 108/70 Pulse Oximetry 96 Oxygen Delivery Method Oxygen Flow Rate 12/10/23 01:20 12/10/23 01:20 12/10/23 01:30 Pulse Rate 87 Respiratory Rate 20 Blood Pressure 116/56 L 105/60 Pulse Oximetry 97 Oxygen Delivery Method Oxygen Flow Rate 12/10/23 01:30 12/10/23 01:37 12/10/23 01:40 Pulse Rate 113 H 104 H Respiratory Rate 23 20 Blood Pressure 99/57 L Pulse Oximetry 98 100 Oxygen Delivery Method Nasal Cannula Oxygen Flow Rate 2.5 12/10/23 01:40 12/10/23 01:51 12/10/23 01:51 Pulse Rate 75 Respiratory Rate 18 Blood Pressure 134/61 Pulse Oximetry 99 94 Oxygen Delivery Method Oxygen Flow Rate 12/10/23 02:00 12/10/23 02:00 12/10/23 02:10 Pulse Rate 89 Respiratory Rate 19 Blood Pressure 120/58 L 123/59 L Pulse Oximetry 99 Oxygen Delivery Method Oxygen Flow Rate 12/10/23 02:10 12/10/23 02:20 12/10/23 02:20 Pulse Rate 99 H 99 H Respiratory Rate 23 18 Blood Pressure 116/58 L Pulse Oximetry 98 99 Oxygen Delivery Method Oxygen Flow Rate 12/10/23 02:30 12/10/23 02:30 12/10/23 02:40 Pulse Rate 87 80 Respiratory Rate 21 16 Blood Pressure 119/58 L Pulse Oximetry 99 100 Oxygen Delivery Method Oxygen Flow Rate 12/10/23 02:40 12/10/23 02:50 12/10/23 02:50 Pulse Rate 95 H Respiratory Rate 18 Blood Pressure 124/59 L 151/75 H Pulse Oximetry Oxygen Delivery Method Oxygen Flow Rate 12/10/23 03:00 12/10/23 03:01 12/10/23 03:01 Pulse Rate 107 H 104 H Respiratory Rate 19 19 Blood Pressure 102/58 L Pulse Oximetry 97 95 Oxygen Delivery Method Oxygen Flow Rate 12/10/23 03:10 12/10/23 03:10 12/10/23 03:20 Pulse Rate 95 H Respiratory Rate 20 Blood Pressure 107/55 L 114/57 L Pulse Oximetry 94 Oxygen Delivery Method Oxygen Flow Rate 12/10/23 03:20 12/10/23 03:30 12/10/23 03:30 Pulse Rate 88 105 H Respiratory Rate 19 19 Blood Pressure 110/53 L Pulse Oximetry 96 95 Oxygen Delivery Method Oxygen Flow Rate 12/10/23 03:40 12/10/23 03:40 12/10/23 03:50 Pulse Rate 110 H Respiratory Rate 20 Blood Pressure 103/64 105/56 L Pulse Oximetry 96 Oxygen Delivery Method Oxygen Flow Rate 12/10/23 03:50 12/10/23 04:00 12/10/23 04:00 Pulse Rate 103 H 110 H Respiratory Rate 17 15 Blood Pressure 109/58 L Pulse Oximetry 98 100 Oxygen Delivery Method Oxygen Flow Rate 12/10/23 04:10 12/10/23 04:10 12/10/23 04:20 Pulse Rate 111 H 100 H Respiratory Rate 14 14 Blood Pressure 112/57 L Pulse Oximetry 100 100 Oxygen Delivery Method Oxygen Flow Rate 12/10/23 04:20 12/10/23 04:30 12/10/23 04:30 Pulse Rate 105 H Respiratory Rate 15 Blood Pressure 99/52 L 109/80 Pulse Oximetry 99 Oxygen Delivery Method Oxygen Flow Rate 12/10/23 04:40 12/10/23 04:40 12/10/23 04:50 Pulse Rate 90 Respiratory Rate 25 H Blood Pressure 119/57 L 111/58 L Pulse Oximetry 94 Oxygen Delivery Method Oxygen Flow Rate 12/10/23 04:50 Pulse Rate 89 Respiratory Rate 23 Blood Pressure Pulse Oximetry 93 Oxygen Delivery Method Oxygen Flow Rate Oxygen Delivery Method Nasal Cannula Oxygen Flow Rate 2.5 Narrative Exam Narrative: Patient was not available for an exam. Objective Labs 12/09/23 23:06 12/10/23 04:50 Labs: Laboratory Results - last 24 hr 12/09/23 12/10/23 12/10/23 23:06 00:45 01:10 WBC 12.5 H RBC 5.90 H Hgb 17.3 H Hct 51.0 H MCV 86.5 MCH 29.4 MCHC 34.0 RDW 13.5 Plt Count 242 Neut % (Auto) 72.6 Lymph % (Auto) 17.3 L [place] % (Auto) 8.7 Eos % (Auto) 0.7 L Baso % (Auto) 0.7 Neut # (Auto) 9100 H Lymph # (Auto) 2200 [place] # (Auto) 1100 H Eos # (Auto) 100 Baso # (Auto) 100 PT 10.8 INR 0.9 Sodium 129 L 131 L Potassium 2.8 L D 2.5 L* Chloride 83 L 86 L Carbon Dioxide 39 H > 40 H* BUN 46 H 44 H Creatinine 2.07 H 2.03 H Estimated GFR 27 L 27 L BUN/Creatinine Ratio 22.2 H 21.7 Glucose 207 H 182 H Lactate 2.4 H 1.2 Calcium 8.9 8.2 L Total Bilirubin 1.1 AST 36 ALT 22 Alkaline Phosphatase 94 Total Creatine Kinase 51 Troponin I < 0.012 NT-Pro-B Natriuret Pep 504 H Total Protein 7.3 Albumin 3.8 Globulin 3.5 Albumin/Globulin Ratio 1.1 Urine Color Urine Appearance Urine pH Ur Specific [place] Urine Protein Urine Glucose (UA) Urine Ketones Urine Occult Blood Urine Nitrate Urine Bilirubin Urine Urobilinogen Ur Leukocyte Esterase Urine RBC Urine WBC Ur Squamous Epith Cells Urine Bacteria Ur Culture Indicated? Vol Urine Centrifuged U Opiates 300ng/mL cut Ur Oxycodone Screen Urine Methadone Screen Ur Barbiturates Screen U Tricyclic Antidepress Ur Phencyclidine Scrn Ur Amphetamines Screen U Methamphetamines Scrn Ur MDMA Scrn (Ecstasy) U Benzodiazepines Scrn Urine Cocaine Screen U Marijuana (THC) Screen Urine Specific [place] Ur Creatinine 12/10/23 12/10/23 12/10/23 01:50 01:50 04:50 WBC RBC Hgb Hct MCV MCH MCHC RDW Plt Count Neut % (Auto) Lymph % (Auto) [place] % (Auto) Eos % (Auto) Baso % (Auto) Neut # (Auto) Lymph # (Auto) [place] # (Auto) Eos # (Auto) Baso # (Auto) PT INR Sodium 131 L Potassium 3.0 L Chloride 91 L Carbon Dioxide 37 H BUN 41 H Creatinine 1.80 H Estimated GFR 31 L BUN/Creatinine Ratio 22.8 H Glucose 152 H Lactate Calcium 7.7 L Total Bilirubin AST ALT Alkaline Phosphatase Total Creatine Kinase Troponin I NT-Pro-B Natriuret Pep Total Protein Albumin Globulin Albumin/Globulin Ratio Urine Color Yellow Urine Appearance Clear Urine pH 5.0 TNP Ur Specific [place] 1.025 Urine Protein Negative Urine Glucose (UA) Negative Urine Ketones Negative Urine Occult Blood Negative Urine Nitrate Negative Urine Bilirubin Negative Urine Urobilinogen 0.2 Ur Leukocyte Esterase Negative Urine RBC None seen Urine WBC None seen Ur Squamous Epith Cells >30 /hpf H Urine Bacteria Occasional (0-1) Ur Culture Indicated? Cult not indicated Vol Urine Centrifuged 10ml (spun) U Opiates 300ng/mL cut Negative Ur Oxycodone Screen Negative Urine Methadone Screen Negative Ur Barbiturates Screen Negative U Tricyclic Antidepress Negative Ur Phencyclidine Scrn Negative Ur Amphetamines Screen Positive H U Methamphetamines Scrn Positive H Ur MDMA Scrn (Ecstasy) Negative U Benzodiazepines Scrn Negative Urine Cocaine Screen Negative U Marijuana (THC) Screen Negative Urine Specific [place] TNP Ur Creatinine TNP Assessment & Plan Assessment and plan (1) NERI (acute kidney injury): Status: Acute (2) Hypokalemia: Status: Acute (3) Congestive heart failure: Status: Acute (4) Amphetamine abuse: Status: Acute (5) Smoker: Status: Acute (6) Nausea: Status: Acute Assessment & Plan narrative: NERI / Hypokalemia - She was given Lasix 40 mg bid for last 7 days - given IVFs in ED - rechecking BMP, Mg CHF - needs cardiology follow up, echocardiogram - she will need diuretic but likely at lower dose - needs to quit methamphetamine use for presumed etiology Smoker - nicotine patch, albuterol prn DVT prophylaxis - heparin
--- NOTE | 2023-12-10 07:21 | PM.HP.1 ---
History of Present Illness History of Present Illness Date Patient Seen: 12/10/23 Chief complaint: rxn to meds/N/V/close to syncope Narrative: From night doctor: 62 y/o presented to ED with nausea. PMH of HTN, obesity, smoking, methamphetamine abuse and suspected CHF. Seen in the ED a week ago complaining on significant weight gain and legs swelling. She did not accept hospitalization and was discharged on diuretic, to follow up with PCP. Today she is hypokalemic with NERI. She was given IVFs and KCl in the ED. Cr and K did not correct enough and she is placed in observation for electrolyte and renal function monitoring and correction. Recent information: She was discharged on a diuretic recently. She did have leg edema which is improved. She would then became quite dizzy in the [employer] parking lot. This prompted her to come to the emergency department where she was found to be volume depleted and had evidence of NERI. Overnight she was given fluids and feels somewhat better. She denies any chest pain, palpitations, or known history of heart problems. She does have peripheral arterial disease per her report and has been smoking for a long time but is slowly cutting down. She is down to about 8 cigarettes a day. [facility] Social History household members: significant other Smoking Status: Current every day smoker alcohol intake: never Meds Home Medications and Allergies Home Medications Medication Instructions Recorded Confirmed Type albuterol sulfate 90 mcg/actuation 2 puff inhalation Q4H PRN 12/10/23 12/10/23 History aerosol inhaler Respiratory Distress codeine 10 mg-guaifenesin 100 mg/5 5 ml PO Q6H PRN cough 12/10/23 12/10/23 History mL oral liquid furosemide 20 mg tablet 20 mg PO QAM 12/10/23 12/10/23 History hydrochlorothiazide 12.5 mg capsule 12.5 mg PO DAILY 12/10/23 12/10/23 History losartan 25 mg tablet 25 mg PO DAILY blood pressure 12/10/23 12/10/23 History metoprolol succinate 25 mg 25 mg PO DAILY 12/10/23 12/10/23 History tablet,extended release 24 hr Allergies Allergy/AdvReac Type Severity Reaction Status Date / Time No Known Drug Allergies Allergy Verified 12/10/23 07:10 Review of Systems Review of Systems Narrative: All else reviewed and otherwise unremarkable except as noted in the history and physical. Exam Vital Signs (past 8 hours): - 12/09/23 23:30 12/09/23 23:30 12/09/23 23:43 Temperature Pulse Rate 74 77 Respiratory Rate 20 24 Blood Pressure 102/57 L Pulse Oximetry 94 95 Oxygen Delivery Method Oxygen Flow Rate 12/09/23 23:43 12/09/23 23:50 12/09/23 23:50 Temperature Pulse Rate 83 Respiratory Rate 22 Blood Pressure 98/54 L 99/54 L Pulse Oximetry 95 Oxygen Delivery Method Oxygen Flow Rate 12/10/23 00:00 12/10/23 00:00 12/10/23 00:10 Temperature Pulse Rate 78 Respiratory Rate 25 H Blood Pressure 115/55 L 109/55 L Pulse Oximetry 98 Oxygen Delivery Method Nasal Cannula Oxygen Flow Rate 2 12/10/23 00:10 12/10/23 00:20 12/10/23 00:20 Temperature Pulse Rate 80 76 Respiratory Rate 18 18 Blood Pressure 121/60 Pulse Oximetry 96 97 Oxygen Delivery Method Oxygen Flow Rate 12/10/23 00:30 12/10/23 00:30 12/10/23 00:40 Temperature Pulse Rate 79 Respiratory Rate 26 H Blood Pressure 108/54 L 94/50 L Pulse Oximetry 98 Oxygen Delivery Method Oxygen Flow Rate 12/10/23 00:40 12/10/23 00:51 12/10/23 00:51 Temperature Pulse Rate 77 82 Respiratory Rate 19 24 Blood Pressure 108/60 Pulse Oximetry 97 96 Oxygen Delivery Method Oxygen Flow Rate 12/10/23 01:00 12/10/23 01:00 12/10/23 01:11 Temperature Pulse Rate 84 Respiratory Rate 22 Blood Pressure 88/54 L 108/70 Pulse Oximetry 95 Oxygen Delivery Method Oxygen Flow Rate 12/10/23 01:11 12/10/23 01:20 12/10/23 01:20 Temperature Pulse Rate 89 87 Respiratory Rate 26 H 20 Blood Pressure 116/56 L Pulse Oximetry 96 97 Oxygen Delivery Method Oxygen Flow Rate 12/10/23 01:30 12/10/23 01:30 12/10/23 01:37 Temperature Pulse Rate 113 H 104 H Respiratory Rate 23 20 Blood Pressure 105/60 Pulse Oximetry 98 100 Oxygen Delivery Method Nasal Cannula Oxygen Flow Rate 2.5 12/10/23 01:40 12/10/23 01:40 12/10/23 01:51 Temperature Pulse Rate 75 Respiratory Rate 18 Blood Pressure 99/57 L 134/61 Pulse Oximetry 99 Oxygen Delivery Method Oxygen Flow Rate 12/10/23 01:51 12/10/23 02:00 12/10/23 02:00 Temperature Pulse Rate 89 Respiratory Rate 19 Blood Pressure 120/58 L Pulse Oximetry 94 99 Oxygen Delivery Method Oxygen Flow Rate 12/10/23 02:10 12/10/23 02:10 12/10/23 02:20 Temperature Pulse Rate 99 H Respiratory Rate 23 Blood Pressure 123/59 L 116/58 L Pulse Oximetry 98 Oxygen Delivery Method Oxygen Flow Rate 12/10/23 02:20 12/10/23 02:30 12/10/23 02:30 Temperature Pulse Rate 99 H 87 Respiratory Rate 18 21 Blood Pressure 119/58 L Pulse Oximetry 99 99 Oxygen Delivery Method Oxygen Flow Rate 12/10/23 02:40 12/10/23 02:40 12/10/23 02:50 Temperature Pulse Rate 80 95 H Respiratory Rate 16 18 Blood Pressure 124/59 L Pulse Oximetry 100 Oxygen Delivery Method Oxygen Flow Rate 12/10/23 02:50 12/10/23 03:00 12/10/23 03:01 Temperature Pulse Rate 107 H Respiratory Rate 19 Blood Pressure 151/75 H 102/58 L Pulse Oximetry 97 Oxygen Delivery Method Oxygen Flow Rate 12/10/23 03:01 12/10/23 03:10 12/10/23 03:10 Temperature Pulse Rate 104 H 95 H Respiratory Rate 19 20 Blood Pressure 107/55 L Pulse Oximetry 95 94 Oxygen Delivery Method Oxygen Flow Rate 12/10/23 03:20 12/10/23 03:20 12/10/23 03:30 Temperature Pulse Rate 88 105 H Respiratory Rate 19 19 Blood Pressure 114/57 L Pulse Oximetry 96 95 Oxygen Delivery Method Oxygen Flow Rate 12/10/23 03:30 12/10/23 03:40 12/10/23 03:40 Temperature Pulse Rate 110 H Respiratory Rate 20 Blood Pressure 110/53 L 103/64 Pulse Oximetry 96 Oxygen Delivery Method Oxygen Flow Rate 12/10/23 03:50 12/10/23 03:50 12/10/23 04:00 Temperature Pulse Rate 103 H Respiratory Rate 17 Blood Pressure 105/56 L 109/58 L Pulse Oximetry 98 Oxygen Delivery Method Oxygen Flow Rate 12/10/23 04:00 12/10/23 04:10 12/10/23 04:10 Temperature Pulse Rate 110 H 111 H Respiratory Rate 15 14 Blood Pressure 112/57 L Pulse Oximetry 100 100 Oxygen Delivery Method Oxygen Flow Rate 12/10/23 04:20 12/10/23 04:20 12/10/23 04:30 Temperature Pulse Rate 100 H Respiratory Rate 14 Blood Pressure 99/52 L 109/80 Pulse Oximetry 100 Oxygen Delivery Method Oxygen Flow Rate 12/10/23 04:30 12/10/23 04:40 12/10/23 04:40 Temperature Pulse Rate 105 H 90 Respiratory Rate 15 25 H Blood Pressure 119/57 L Pulse Oximetry 99 94 Oxygen Delivery Method Oxygen Flow Rate 12/10/23 04:50 12/10/23 04:50 12/10/23 06:28 Temperature 98 F Pulse Rate 89 78 Respiratory Rate 23 18 Blood Pressure 111/58 L 118/72 Pulse Oximetry 93 97 Oxygen Delivery Method Room Air Oxygen Flow Rate 12/10/23 07:06 Temperature 97.3 F L Pulse Rate 63 Respiratory Rate 16 Blood Pressure 115/47 L Pulse Oximetry 92 Oxygen Delivery Method Oxygen Flow Rate 0 Oxygen Delivery Method Room Air Oxygen Flow Rate 0 Narrative Exam Narrative: NAD, alert and oriented, fluent speech, calm. Normocephalic skull, EOMI, anicteric sclera, symmetric pupils. Oropharynx unremarkable, no droop. Neck supple, midline trachea, no adenopathy. Lungs clear, normal rate and effort. Heart regular, no murmur gallop or rub. Abdomen is soft, non distended and non tender. Extremities are free of edema. Skin is free of rash or lesions. Joints are not swollen or deformed. Judgment appears to be normal. Objective Imaging Chest x-ray: Radiologist's impression: Resolving pulmonary edema. Labs 12/09/23 23:06 12/10/23 04:50 Labs: Laboratory Results - last 24 hr 12/09/23 12/10/23 12/10/23 23:06 00:45 01:10 WBC 12.5 H RBC 5.90 H Hgb 17.3 H Hct 51.0 H MCV 86.5 MCH 29.4 MCHC 34.0 RDW 13.5 Plt Count 242 Neut % (Auto) 72.6 Lymph % (Auto) 17.3 L [place] % (Auto) 8.7 Eos % (Auto) 0.7 L Baso % (Auto) 0.7 Neut # (Auto) 9100 H Lymph # (Auto) 2200 [place] # (Auto) 1100 H Eos # (Auto) 100 Baso # (Auto) 100 PT 10.8 INR 0.9 Sodium 129 L 131 L Potassium 2.8 L D 2.5 L* Chloride 83 L 86 L Carbon Dioxide 39 H > 40 H* BUN 46 H 44 H Creatinine 2.07 H 2.03 H Estimated GFR 27 L 27 L BUN/Creatinine Ratio 22.2 H 21.7 Glucose 207 H 182 H Lactate 2.4 H 1.2 Calcium 8.9 8.2 L Magnesium Total Bilirubin 1.1 AST 36 ALT 22 Alkaline Phosphatase 94 Total Creatine Kinase 51 Troponin I < 0.012 NT-Pro-B Natriuret Pep 504 H Total Protein 7.3 Albumin 3.8 Globulin 3.5 Albumin/Globulin Ratio 1.1 Urine Color Urine Appearance Urine pH Ur Specific [place] Urine Protein Urine Glucose (UA) Urine Ketones Urine Occult Blood Urine Nitrate Urine Bilirubin Urine Urobilinogen Ur Leukocyte Esterase Urine RBC Urine WBC Ur Squamous Epith Cells Urine Bacteria Ur Culture Indicated? Vol Urine Centrifuged U Opiates 300ng/mL cut Ur Oxycodone Screen Urine Methadone Screen Ur Barbiturates Screen U Tricyclic Antidepress Ur Phencyclidine Scrn Ur Amphetamines Screen U Methamphetamines Scrn Ur MDMA Scrn (Ecstasy) U Benzodiazepines Scrn Urine Cocaine Screen U Marijuana (THC) Screen Urine Specific [place] Ur Creatinine 12/10/23 12/10/23 12/10/23 01:50 01:50 04:50 WBC RBC Hgb Hct MCV MCH MCHC RDW Plt Count Neut % (Auto) Lymph % (Auto) [place] % (Auto) Eos % (Auto) Baso % (Auto) Neut # (Auto) Lymph # (Auto) [place] # (Auto) Eos # (Auto) Baso # (Auto) PT INR Sodium 131 L Potassium 3.0 L Chloride 91 L Carbon Dioxide 37 H BUN 41 H Creatinine 1.80 H Estimated GFR 31 L BUN/Creatinine Ratio 22.8 H Glucose 152 H Lactate Calcium 7.7 L Magnesium 2.0 Total Bilirubin AST ALT Alkaline Phosphatase Total Creatine Kinase Troponin I NT-Pro-B Natriuret Pep Total Protein Albumin Globulin Albumin/Globulin Ratio Urine Color Yellow Urine Appearance Clear Urine pH 5.0 TNP Ur Specific [place] 1.025 Urine Protein Negative Urine Glucose (UA) Negative Urine Ketones Negative Urine Occult Blood Negative Urine Nitrate Negative Urine Bilirubin Negative Urine Urobilinogen 0.2 Ur Leukocyte Esterase Negative Urine RBC None seen Urine WBC None seen Ur Squamous Epith Cells >30 /hpf H Urine Bacteria Occasional (0-1) Ur Culture Indicated? Cult not indicated Vol Urine Centrifuged 10ml (spun) U Opiates 300ng/mL cut Negative Ur Oxycodone Screen Negative Urine Methadone Screen Negative Ur Barbiturates Screen Negative U Tricyclic Antidepress Negative Ur Phencyclidine Scrn Negative Ur Amphetamines Screen Positive H U Methamphetamines Scrn Positive H Ur MDMA Scrn (Ecstasy) Negative U Benzodiazepines Scrn Negative Urine Cocaine Screen Negative U Marijuana (THC) Screen Negative Urine Specific [place] TNP Ur Creatinine TNP Assessment & Plan Assessment & Plan narrative: 1. NERI, present on admission and active. - She was given Lasix 40 mg bid for last 7 days - given IVFs in ED - rechecking BMP, Mg 2.0Hypokalemia, present on admission and active. 3. Volume depletion(from diuretics), present on admission and active. 4.CHF, present on admission and active. - needs cardiology follow up, echocardiogram - she will need diuretic but likely at lower dose - needs to quit methamphetamine use for presumed etiology 5. Nicotine (smoker) dependence, present on admission and active. - nicotine patch, albuterol prn 6. Possible PAD, present on admission and active. 7. H/O methamphetamine use. DVT prophylaxis - heparin Time Spent With Patient Time with patient: 30 to 49 minutes with 50% spent counseling/coordinating care Quality MIPS - Admit I confirm the patient?s Advance Care Plan is present, Code status is documented, Surrogate decision maker is in patient?s record [If Yes, STOP here]: Yes MIPS - Meds 'Current medications' to include all prescriptions, [id number] products, herbals, cannabis/cannabidiol products, and vitamin/mineral/dietary (nutritional) supplements. I have utilized all available resources to obtain, update, or review the patient?s current medications. [If Yes, STOP here]: Yes
--- NOTE | 2023-12-10 09:22 | DI.ECHO.S_ITS ---
[facility] +---------+ : : [address] : [address] : : : : [id number] : : : : Phone: [phone]+ Echocardiogram Report + + :Name: HEATH HO Study Date: 12/10/2023 Height: 66 in : :[facility] ReadingLocation: Weight: 210 lb: : Gender: Female BSA: 2.0 m2 : :: 1960 Age: 62 yrs BP: 99/55 mmHg: :Reason For Study: Congestive Heart Failure : : Performed By: Nelia Storm : :Referring: AIDAN CORTEZ L : + + Interpretation Summary 1) Normal left ventricular thickness, size, and systolic function (EF 65-70%). 2) Normal right ventricular size and function. 3) No significant valvular abnormalities. 4) Calcific mitral valve with mild inflow gradient (mean 5.4mmHg). There is trace mitral regurgitation. 5) There is mild aortic stenosis (valve area 1.6cm2, mean gradient 12mmHg). 6) No prior Echo available for comparison. Procedure: A two-dimensional transthoracic echocardiogram with color flow and Doppler was performed. There is no prior echocardiogram noted for this patient. The study quality was technically difficult. The patient had frequent PACs during the exam. The patient had frequent PVCs during the exam. Left Ventricle: The left ventricle is normal in size and wall thickness. The ejection fraction is estimated to be 65-70%. There are no obvious focal wall motion abnormalities noted but poor endocardial definition reduces the sensitivity for the detection of such. Diastolic parameters suggest a pseudonormalization pattern, consistent with probable elevated filling pressures. Right Ventricle: The right ventricle is normal in size and function. Atria: The left atrium is moderately dilated. Right atrial size is normal. There is no Doppler evidence for an interatrial shunt. The thickening of interatrial septum suggests lipomatous hypertrophy. Mitral Valve: There is moderate mitral annular calcification. The mitral valve leaflets are mildly calcified. The mitral valve mean gradient is 5.4 mmHg. There is trace mitral regurgitation. Aortic Valve: The aortic valve is grossly normal. There is mild aortic stenosis. No aortic regurgitation is present. Tricuspid Valve: The tricuspid valve is not well visualized, but is grossly normal. The right ventricular systolic pressure is estimated to be at least 36 mmHg based on an estimated right atrial pressure of 3 mm Hg. Pulmonic Valve: The pulmonic valve is not well visualized. Great Vessels: The aortic root is normal size. The ascending aorta is normal in size. The IVC is of normal diameter and collapses greater than 50% with a sniff. This suggests a low right atrial pressure of 3 mm Hg. Pericardium/ Pleura There is no pericardial effusion. MMode/2D Measurements & Calculations LVIDd: 3.9 cm LVOT diam: 1.8 cm LVIDs: 2.5 cm Ao root diam: 2.3 cm FS: 36.0 % asc Aorta Diam: 2.9 cm IVSd: 0.86 cm LVPWd: 0.77 cm LV leigh. diameter/BSA (cm/m^2): 1.9 LV sys. diameter/BSA (cm/m^2): 1.2 LA A2 area: 19.4 cm2 RA long axis: 5.5 cm LA A4 area: 30.9 cm2 RA area: 16.5 cm2 LA length (vol): 7.3 cm RA vol: 41.8 ml LA vol: 69.2 ml RA : 20.5 ml/m2 LA vol index: 33.9 ml/m2 IVC diam: 1.4 cm RVD1 (basal): 3.4 cm TAPSE: 2.1 cm Doppler Measurements & Calculations Ao V2 max: 218.2 cm/sec LVOT Max Adrian: 133.0 cm/sec Ao V2 mean: 167.7 cm/sec LV V1 max P.1 mmHg Ao max P.1 mmHg LV V1 VTI: 27.8 cm Ao mean P.0 mmHg ADELINA(I,D): 1.6 cm2 Ao V2 VTI: 42.3 cm ADELINA(V,D): 1.5 cm2 sev ratio: 0.66 ADELINA indexed to BSA (cm^2/m^2): 0.79 MV E max adiran: 133.8 cm/sec TR max adrian: 288.1 cm/sec MV A max adrian: 146.8 cm/sec TR max P.2 mmHg MV E/A: 0.91 PA V2 max: 102.9 cm/sec Med Peak E' Adrian: 8.0 cm/sec PA V2 mean: 78.6 cm/sec E/E' med: 16.8 PA mean P.7 mmHg Lat Peak E' Adrian: 6.2 cm/sec PA pr(Accel): 35.3 mmHg E/E' lat: 21.5 E/e' average: 19.1 MV dec time: 0.35 sec MVA(VTI): 1.5 cm2 MV V2 mean: 105.4 cm/sec SV(LVOT): 67.9 ml MV mean P.4 mmHg MV V2 VTI: 46.4 cm Reading Physician:[id number] PM
--- NOTE | 2023-12-10 10:20 | PC.NURSE ---
Pt arousable, follows commands, offers no overt c/o or issues presently.
[2023-12-10] MEDS: HEPARIN 5,000 UNIT/ML VIAL 5000 UNIT SUBCUT ×2 (11:46→20:44)
[2023-12-10 14:17] LABS: BUN Creatinine Ratio 25.2 (6-22); Blood Urea Nitrogen 41 mg/dL (7-17); Calcium 8.1 mg/dL (8.4-10.2); Carbon Dioxide 36 mmol/L (22-32); Chloride 92 mmol/L (98-107); Estimated Glomerular Filt Rate 35 mL/min (>60); Glucose 245 mg/dL (80-110); HEMOLYSIS < 15 (0-50); Potassium 3.2 mmol/L (3.4-5.1); Sodium 132 mmol/L (137-145)
--- NOTE | 2023-12-10 15:42 | CM.DANOTE ---
Initial DCP Assessment Visit Note Reviewed EMR and team rounds for status updates. Met with pt at bedside to introduce self and role, pt found to be alert/oriented/able to discuss d/c concerns/needs/preferences. She resides in [place] in her own home, has local family to assist with care needs. No anticipated home d/c needs at this time. 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 She was given lasix at the [id number] 12/01/23. She was found to be hypotensive w/low O2 sats in the ED. She was started on nasal cannula O2 with 2-liters and IV fluids. Likely d/c on Tuesday. DCP will continue to follow and assist with any further evolving d/c needs. 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 No History Provided By Patient,Medical Record Has Patient been admitted in last 30 No days? Prior Living Arrangements Apartment/Condo Household Members significant other Type of transporation used prior to Drives own vehicle admit Independent with ADL's Yes Is patient alert and oriented? Yes Caregiver for Another No Comment No identified home d/c needs at this time. Barriers to Discharge No Discharge Plan Home Transportation Arrangement Family Referrals Initiated None needed Whiteboard Updated in Patient Room with Yes name and ext. # of Tape Recording Machine Operator Review Status In Process Please Provide Date Initial DC 12/10/23 Assessment Was Performed
[2023-12-10] MEDS: CODEINE/GUAIFENESIN LIQUID 5ML UDC 5 ML PO (20:45)
[2023-12-11] MEDS: CODEINE/GUAIFENESIN LIQUID 5ML UDC 5 ML PO ×2 (04:31→10:14)
[2023-12-11 05:30] LABS: Blood Urea Nitrogen 35 mg/dL (7-17); Calcium 8.7 mg/dL (8.4-10.2); Carbon Dioxide 33 mmol/L (22-32); Chloride 97 mmol/L (98-107); Estimated Glomerular Filt Rate > 60 mL/min (>60); Glucose 193 mg/dL (80-110); HEMOLYSIS 21 (0-50); Potassium 3.6 mmol/L (3.4-5.1); Sodium 133 mmol/L (137-145)
[2023-12-11 05:53] VITALS: BP 124/67; PULSE 61; RESP 18; TEMP 36.6; O2SAT 92
[2023-12-11 08:00] VITALS: BP 119/56; PULSE 84; RESP 16; TEMP 36.6; O2SAT 92
[2023-12-11] MEDS: HEPARIN 5,000 UNIT/ML VIAL 5000 UNIT SUBCUT (10:07)
[2023-12-11] MEDS: METOPROLOL ER 25 MG TABLET PO (10:08)
--- NOTE | 2023-12-11 10:21 | PM.DS.1 ---
History of Present Illness History of Present Illness Chief complaint: rxn to meds/N/V/close to syncope Narrative: From night doctor: 62 y/o presented to ED with nausea. PMH of HTN, obesity, smoking, methamphetamine abuse and suspected CHF. Seen in the ED a week ago complaining on significant weight gain and legs swelling. She did not accept hospitalization and was discharged on diuretic, to follow up with PCP. Today she is hypokalemic with NERI. She was given IVFs and KCl in the ED. Cr and K did not correct enough and she is placed in observation for electrolyte and renal function monitoring and correction. Recent information: She was discharged on a diuretic recently. She did have leg edema which is improved. She would then became quite dizzy in the [employer] parking lot. This prompted her to come to the emergency department where she was found to be volume depleted and had evidence of NERI. Overnight she was given fluids and feels somewhat better. She denies any chest pain, palpitations, or known history of heart problems. She does have peripheral arterial disease per her report and has been smoking for a long time but is slowly cutting down. She is down to about 8 cigarettes a day. Discharge Providers Provider Date of admission: 12/10/23 05:49 Discharge Date: 12/11/23 Primary care physician: Doctor Miri MD Consults: None. Discharge provider: Akhil Goodrich MD Summary Hospital Course Discharge Diagnosis: 1. NERI, present on admission and resolved. - She was given Lasix 40 mg bid for last 7 days - given IVFs in ED 2. Hypokalemia, present on admission and improved. 3. Volume depletion(from diuretics), present on admission and improved. 4.CHF, present on admission and active. - needs cardiology follow up, echocardiogram reveals normal EF (see report below) - needs to quit methamphetamine use for presumed etiology 5. Nicotine (smoker) dependence, present on admission and active. - nicotine patch, albuterol prn 6. Possible PAD, present on admission and active. 7. H/O methamphetamine use. Currently active. Hospital Course: She was admitted with acute kidney injury, volume depletion, and hypokalemia secondary to diuretic use. Her to diuretics and ARB were held. She was given IV and potassium him in improved she normally renal function as well as potassium. Echo revealed a normal EF. Chest x-ray here is unremarkable. The plan will be discharged without diuretics or Arb with very close follow up to see how her interval fluid status changes over the next several days. She does not need a new PCP. Status at Discharge Cognitive/behavioral status at discharge: oriented Functional status at discharge: independent ambulation Overall status at discharge: patient is back to baseline Time Spent with Patient Time spent: Greater than 30 minutes Exam Vital Signs (past 8 hours): - 12/11/23 05:53 12/11/23 08:00 Temperature 97.8 F 97.8 F Pulse Rate 61 84 Respiratory Rate 18 16 Blood Pressure 124/67 119/56 L Pulse Oximetry 92 92 Oxygen Flow Rate 0 0 Oxygen Delivery Method Room Air Oxygen Flow Rate 0 Narrative Exam Narrative: NAD, alert and oriented. Fluent speech. Lungs are clear, normal rate and effort. Heart is regular, no murmur gallop or rub. Abdomen is soft, non distended. Extremities are free of edema. Objective Imaging Chest x-ray: Radiologist's impression: Improved interstitial prominence compared to the prior. Echo: Radiologist's impression: 1) Normal left ventricular thickness, size, and systolic function (EF 65-70%). 2) Normal right ventricular size and function. 3) No significant valvular abnormalities. 4) Calcific mitral valve with mild inflow gradient (mean 5.4mmHg). There is trace mitral regurgitation. 5) There is mild aortic stenosis (valve area 1.6cm2, mean gradient 12mmHg). 6) No prior Echo available for comparison. Labs 12/09/23 23:06 12/11/23 04:36 Labs: Laboratory Results - last 24 hr 12/10/23 12/11/23 13:59 04:36 Sodium 132 L 133 L Potassium 3.2 L 3.6 Chloride 92 L 97 L Carbon Dioxide 36 H 33 H BUN 41 H 35 H Creatinine 1.63 H 1.00 Estimated GFR 35 L > 60 BUN/Creatinine Ratio 25.2 H 35.0 H Glucose 245 H 193 H Calcium 8.1 L 8.7 PFSH Social History household members: significant other Smoking Status: Current every day smoker alcohol intake: never Discharge Assessment & Plan Assessment and Plan Assessment: 1. NERI, present on admission and resolved. 2.Hypokalemia, present on admission and resolved. 3. Volume depletion(from diuretics), present on admission and resolved. 4.CHF (diastolic), present on admission and stable. 5. Nicotine (smoker) dependence, present on admission and active. - nicotine patch, albuterol prn 6. Possible PAD, present on admission and active. 7. H/O methamphetamine use. Present on admission and active. Plan of Treatment: She is discharged home, we will hold meds except for metoprolol. He was advised to stop using methamphetamines. He is asked to call Dr. Andrade's office to see if he is able to see her this week. She will require a repeat assessment for electrolytes and fluid status clinically. Discharge Plan Discharge Plan Patient Disposition: Home Provider Discharge Comment: Renal function has normalized, stable for discharge and we will hold diuretics and ARB. Discharge orders & Medications Prescriptions: Continued albuterol sulfate 90 mcg/actuation HFA aerosol inhaler 2 puff INHALATION Q4H PRN (Reason: Respiratory Distress) metoprolol succinate 25 mg tablet extended release 24 hr 25 mg PO DAILY codeine-guaifenesin 10-100 mg/5 mL liquid 5 ml PO Q6H PRN (Reason: cough) Discontinued furosemide 20 mg tablet 20 mg PO QAM hydrochlorothiazide 12.5 mg capsule 12.5 mg PO DAILY losartan 25 mg tablet 25 mg PO DAILY Follow up/Referrals: Doctor Chery MD [Primary Care Provider] - 1 Week Discharge Health Status Multidrug resistant organism: No MDRO Diet/Activity/Treatments Diet: Diet as Tolerated Visit Report/Discharge Packet Stand Alone Forms: Patient Portal/API Discharge Data Primary Care Provider: Doctor Miri Attending Provider: Hernesto Solano Admit Date/Time: 12/10/23 05:49
== END 2023-12-11 10:58 | disposition home or self-care (01) ==
LOC: ED 22:26 → AC 12-10 05:50
PROVIDERS: Admitting Provider Internal Medicine; Emergency Provider Emergency Medicine; Referring Provider Emergency Medicine; Visit Provider Internal Medicine
DX: N17.9 Acute kidney failure, unspecified (principal); I11.0 Hypertensive heart disease with heart failure; E87.6 Hypokalemia; F15.10 Other stimulant abuse, uncomplicated; R11.0 Nausea; F17.200 Nicotine dependence, unspecified, uncomplicated
CPT/HCPCS: 36415; 71045; 80048; 80053; 80305; 81001; 82550; 83605; 83735; 83880; 84484; 85025; 85610; 93005; 93306; 96360; 96361; 96372; 99285; G0378; J1644